=== PATIENT | female | born 1995 | race Caucasian/White ===

== ENCOUNTER → 2024-02-01 | Outpatient (CLI) | payer OTHER ==
[2024-02-02 10:28] LABS: HEMATOCRIT 33.7 % (36.0-47.0); HEMOGLOBIN 11.7 g/dl (12.0-15.5); MEAN CORPUSCULAR HEMOGLOBIN 32.4 pg (27.0-33.0); MEAN CORPUSCULAR HGB CONC 34.7 g/dl (32.0-36.5); MEAN CORPUSCULAR VOLUME 93.4 fl (80.0-96.0); PLATELET COUNT, AUTOMATED 277 10^3/uL (150-450); RED BLOOD COUNT 3.61 10^6/uL (4.00-5.40); WHITE BLOOD COUNT 8.6 10^3/uL (4.0-10.0)
[2024-02-02 11:23] LABS: HIV 1&2 SCREEN NEGATIVE (NEGATIVE)
[2024-02-02 11:32] LABS: HEPATITIS C VIRUS ABY INDEX < 0.02 INDEX (<0.8)
[2024-02-02 12:17] LABS: GC DNA AMPLIFICATION NEGATIVE (NEGATIVE)
== END ==
LOC: MERGE 16:14 → M PLALAB 16:14
PROVIDERS: ATTEND Advanced Practice Midwife
DX: Z34.81 Encounter for supervision of other normal pregnancy, first trimester (principal); Z3A.00 Weeks of gestation of pregnancy not specified

== ENCOUNTER → 2024-03-06 | Outpatient (REF) | payer OTHER ==
[2024-03-06 15:46] LABS: TOTAL PROTEIN,RANDOM URINE 9.8 MG/DL (0.0-14.0)
[2024-03-06 15:51] LABS: CREATININE,RANDOM URINE 70.7 MG/DL
== END ==
LOC: M SFHCWAGY 15:02
PROVIDERS: ATTEND Obstetrics & Gynecology
DX: O26.891 Other specified pregnancy related conditions, first trimester (principal); Z3A.00 Weeks of gestation of pregnancy not specified

== ENCOUNTER → 2024-04-05 | Outpatient (CLI) | payer OTHER | LOC: M WHC 14:47 | PROVIDERS: ATTEND Obstetrics & Gynecology | DX: Z36.2 Encounter for other antenatal screening follow-up (principal); O26.899 Other specified pregnancy related conditions, unspecified trimester; Z3A.20 20 weeks gestation of pregnancy ==

== ENCOUNTER → 2024-04-27 | Outpatient (CLI) | payer OTHER | LOC: M RAD 15:02 | PROVIDERS: ATTEND Advanced Practice Midwife | DX: Z34.92 Encounter for supervision of normal pregnancy, unspecified, second trimester (principal) ==

== ENCOUNTER → 2024-05-30 | Outpatient (CLI) | payer OTHER ==
[2024-05-30 12:51] LABS: HEMATOCRIT 36.3 % (36.0-47.0); HEMOGLOBIN 12.5 g/dl (12.0-15.5); MEAN CORPUSCULAR HEMOGLOBIN 32.2 pg (27.0-33.0); MEAN CORPUSCULAR HGB CONC 34.4 g/dl (32.0-36.5); MEAN CORPUSCULAR VOLUME 93.6 fl (80.0-96.0); PLATELET COUNT, AUTOMATED 233 10^3/uL (150-450); RED BLOOD COUNT 3.88 10^6/uL (4.00-5.40); WHITE BLOOD COUNT 7.5 10^3/uL (4.0-10.0)
[2024-05-30 13:24] LABS: GLUCOSE CHALLENGE TEST 1 HOUR 135 MG/DL (LESS THAN 140)
[2024-05-30 13:54] LABS: HIV 1&2 SCREEN NEGATIVE (NEGATIVE)
[2024-05-30 14:02] LABS: HEPATITIS C VIRUS ABY INDEX < 0.02 INDEX (<0.8)
[2024-05-30 16:38] LABS: GC DNA AMPLIFICATION NEGATIVE (NEGATIVE)
== END ==
LOC: M PLALAB 10:40
PROVIDERS: ATTEND Advanced Practice Midwife
DX: Z34.82 Encounter for supervision of other normal pregnancy, second trimester (principal)

== ENCOUNTER → 2024-05-31 | Outpatient (CLI) | payer OTHER | LOC: M WHC 12:22 | PROVIDERS: ATTEND Advanced Practice Midwife | DX: Z34.82 Encounter for supervision of other normal pregnancy, second trimester (principal) ==

== ENCOUNTER → 2024-06-04 | Outpatient (CLI) | payer OTHER | LOC: M LAB 07:25 | PROVIDERS: ATTEND Advanced Practice Midwife | DX: O99.810 Abnormal glucose complicating pregnancy (principal) ==

== ENCOUNTER → 2024-07-24 | Outpatient (REF) | payer OTHER | LOC: M PLALAB 09:04 | PROVIDERS: ATTEND Obstetrics & Gynecology | DX: Z36.89 Encounter for other specified antenatal screening (principal); Z3A.36 36 weeks gestation of pregnancy ==

== ENCOUNTER 2024-07-27 03:42 | Outpatient (CLI) | payer OTHER ==
[~2024-07-27] VITALS: Ht 160 cm; Wt 87.0 kg
[2024-07-27 04:00] VITALS: BP 125/88
[2024-07-27] MEDS: LR 1,000 ML IV ONE (04:39)
[2024-07-27 07:31] VITALS: BP 133/90
== END 2024-07-27 07:42 | disposition home or self-care (01) ==
LOC: M LDO 03:42
PROVIDERS: ATTEND Specialist
DX: O47.03 False labor before 37 completed weeks of gestation, third trimester (principal); O34.219 Maternal care for unspecified type scar from previous cesarean delivery; O09.293 Supervision of pregnancy with other poor reproductive or obstetric history, third trimester; Z87.59 Personal history of other complications of pregnancy, childbirth and the puerperium; Z3A.36 36 weeks gestation of pregnancy
CPT/HCPCS: 59025; G0463

== ENCOUNTER 2024-08-01 17:33 | Inpatient (IN) | payer OTHER ==
[~2024-08-01] VITALS: Ht 160 cm; Wt 85.7 kg
[2024-08-01] VITALS (10 sets, daily range): BP systolic 126–160; BP diastolic 77–100; TEMP 98; O2SAT 97–98
[~2024-08-01 17:33] MED LIST: PRENTAB53 PO
[2024-08-01] MEDS ORDERED: TRANEXAMIC ACID INJection 1,000 MG in NS 100 ML IV PRN (18:15)
[2024-08-01] MEDS ORDERED: LR 1,000 ML IV SCH (18:15)
[2024-08-01] MEDS ORDERED: OXYTOCIN INJ 10UNITS/ML 1ML VIAL IM PRN (18:15)
[2024-08-01] MEDS ORDERED: OXYTOCIN DRIP 30 UNITS in IV 1 EA IV PRN (18:15)
[2024-08-01] MEDS ORDERED: CARBOPROST TROMETHAMINE 250 MCG/ML AMP IM PRN (18:15)
[2024-08-01 18:39] LABS: HEMATOCRIT 35.1 % (36.0-47.0); HEMOGLOBIN 12.1 g/dl (12.0-15.5); MEAN CORPUSCULAR HEMOGLOBIN 31.4 pg (27.0-33.0); MEAN CORPUSCULAR HGB CONC 34.5 g/dl (32.0-36.5); MEAN CORPUSCULAR VOLUME 91.2 fl (80.0-96.0); PLATELET COUNT, AUTOMATED 269 10^3/uL (150-450); RED BLOOD COUNT 3.85 10^6/uL (4.00-5.40); WHITE BLOOD COUNT 7.4 10^3/uL (4.0-10.0)
[2024-08-01 19:01] LABS: URIC ACID 6.4 MG/DL (3.1-7.8)
[2024-08-01 19:03] LABS: LDH LACTATE DEHYDROGENASE 145 U/L (120-246)
[2024-08-01 19:05] LABS: ALT/SGPT 14 U/L (7.0-40); AST/SGOT 12 U/L (<34); BILIRUBIN,TOTAL 0.5 MG/DL (0.3-1.2); CREATININE FOR GFR 0.55 MG/DL (0.55-1.30); GLOMERULAR FILTRATION RATE > 60.0 (>60)
[2024-08-01] MEDS: LACTATED RINGER'S 1000 ML IV STA (19:25)
[2024-08-01] MEDS: ceFAZolin SOD 2 GM in IV 1 EA IV ONE (19:26)
[2024-08-01] MEDS: BICITRA 30ML SOLN UDC PO ONE (19:26)
[2024-08-01 19:41] LABS: TOTAL PROTEIN,RANDOM URINE 22.2 MG/DL (0.0-14.0)
[2024-08-01 19:46] LABS: CREATININE,RANDOM URINE 119.8 MG/DL
[2024-08-01 20:08] LABS: HEPATITIS C VIRUS ABY INDEX < 0.02 INDEX (<0.8)
[2024-08-01 21:00] LABS: CORD GAS ABE V -1.4; CORD GAS O2 SAT V 58.3 %; CORD GAS PCO2 V 42.7 mmHg; CORD GAS PH V 7.368 UNITS; CORD GAS PO2 V 24.2 mmHg; CORD GAS SBC V 22.4 MMOL/L; CORD GAS TCO2 V 25.3 MMOL/L
[2024-08-01 21:01] LABS: CORD GAS ABE A -1.4; CORD GAS HCO3 A 25.5 MMOL/L; CORD GAS PCO2 A 51.2 mmHg; CORD GAS PH A 7.315 UNITS; CORD GAS PO2 A 13.3 mmHg; CORD GAS SBC A 21.5 MMOL/L; CORD GAS TCO2 A 27.1 MMOL/L
[2024-08-01] MEDS ORDERED: OXYTOCIN 30UNITS IN 0.9% NaCl 500ML IV BAG As Ordered ONE (21:01)
[2024-08-01] MEDS ORDERED: ONDANSETRON 4MG 2ML VIAL As Ordered ONE (21:01)
[2024-08-01] MEDS ORDERED: KETOROLAC 60MG 2ML VIAL As Ordered ONE (21:01)
[2024-08-01] MEDS ORDERED: METOCLOPRAMIDE INJ 10MG/2ML VIAL As Ordered ONE (21:01)
[2024-08-01] MEDS ORDERED: MORPHINE PRES-FREE INJ 10 MG/10 ML VIAL As Ordered ONE (21:01)
[2024-08-01] MEDS ORDERED: PHENYLephrine 500MCG 5ML (100MCG/ML) SYRINGE As Ordered ONE (21:02)
[2024-08-01] MEDS ORDERED: ePHEDrine SULFATE 25 MG/5 ML(5MG/ML) SYRINGE As Ordered ONE (21:02)
[2024-08-01] MEDS: LR 1,000 ML IV SCH (21:45)
[2024-08-01] MEDS: OXYTOCIN DRIP 30 UNITS in IV 1 EA IV SCH (21:45)
[2024-08-01] MEDS ORDERED: RHO(D) IMMUNE GLOBULIN/MALTOSE 500MCG(2500IU)/2.2ML VIAL (WINRHO) IM SCH (21:45)
[2024-08-01] MEDS ORDERED: IBUP80TA PO (22:08)
[2024-08-01] MEDS ORDERED: OXYC1TAB23 PO (22:09)
[2024-08-01] MEDS ORDERED: COLA100C5 PO (22:09)
[2024-08-02] VITALS (8 sets, daily range): BP systolic 109–127; BP diastolic 55–78; O2SAT 97–100
[2024-08-02] MEDS: KETOROLAC 30 MG/ML 1ML VIAL IV SCH (03:15)
[2024-08-02] MEDS: LR 1,000 ML IV ONE (05:51)
[2024-08-02 06:14] LABS: MEAN CORPUSCULAR HEMOGLOBIN 31.8 pg (27.0-33.0); MEAN CORPUSCULAR HGB CONC 34.1 g/dl (32.0-36.5); MEAN CORPUSCULAR VOLUME 93.3 fl (80.0-96.0); PLATELET COUNT, AUTOMATED 205 10^3/uL (150-450); RED BLOOD COUNT 3.14 10^6/uL (4.00-5.40); WHITE BLOOD COUNT 12.9 10^3/uL (4.0-10.0)
[2024-08-02 06:28] LABS: HEMATOCRIT 29.3 % (36.0-47.0)
[2024-08-02] MEDS: PRENATAL VITAMINS CHEWABLE TABLET PO SCH (09:27)
[2024-08-02] MEDS: SIMETHICONE 80MG CHEW TAB PO PRN (18:16)
[2024-08-02] MEDS: PERCOCET 5MG/325MG TAB PO PRN (21:49)
[2024-08-02] MEDS: IBUPROFEN 800 MG TAB PO SCH (23:08)
[2024-08-03 02:00] VITALS: BP 131/77; O2SAT 98
[2024-08-03] MEDS: PERCOCET 5MG/325MG TAB PO PRN (03:08)
[2024-08-03 06:00] VITALS: BP 110/67; O2SAT 99
[2024-08-03] MEDS: MEASLES,MUMPS,RUBELLA VACCINE INJ (MMR-II) SC.IMMUN ONE (08:08)
[2024-08-03 10:00] VITALS: BP 114/73; O2SAT 98
== END 2024-08-03 12:30 | disposition home or self-care (01) | DRG 541 ==
LOC: M LDO 17:33 → M LDI 18:37 → M OBS 23:00
PROVIDERS: ADMIT Advanced Practice Midwife; ATTEND Advanced Practice Midwife
PROC: 0UB70ZZ Excision of Bilateral Fallopian Tubes, Open Approach (ICD-10-PCS; 2024-08-01)
PROC: 10E0XZZ Delivery of Products of Conception, External Approach (ICD-10-PCS; principal; 2024-08-01 20:00)
DX: O34.211 Maternal care for low transverse scar from previous cesarean delivery (principal); Z37.0 Single live birth; Z3A.37 37 weeks gestation of pregnancy; Z30.2 Encounter for sterilization; O14.94 Unspecified pre-eclampsia, complicating childbirth